=== PATIENT | male | born 1985 | race Caucasian/White ===

== ENCOUNTER 2021-09-29 22:06 | Emergency (ER) | payer OTHER, SELFPAY ==
[~2021-09-29] VITALS: Ht 177.8 cm; Wt 75.6 kg
[2021-09-29] MEDS ORDERED: ONDANSETRON 4MG/2ML VIAL IV ONE (22:30)
[2021-09-29] MEDS: NS 1,000 ML IV SCH (22:48)
[2021-09-29 22:54] LABS: BASO # 0.1 10^3/uL (0.0-0.2); BASO % 0.5 % (0.0-1.0); EOS # 0.3 10^3/uL (0.0-0.5); EOS % 2.1 % (0.0-3.0); HEMATOCRIT 43.3 % (42.0-52.0); HEMOGLOBIN 15.1 g/dl (13.5-17.5); LYMPH # 4.1 10^3/uL (1.5-5.0); LYMPH % 27.3 % (24.0-44.0); MEAN CORPUSCULAR HEMOGLOBIN 32.1 pg (27.0-33.0); MEAN CORPUSCULAR HGB CONC 34.9 g/dl (32.0-36.5); MEAN CORPUSCULAR VOLUME 92.1 fl (80.0-96.0); MONO % 6.7 % (2.0-8.0); NEUTROPHILS # 9.4 10^3/uL (1.5-8.5); NEUTROPHILS % 63.1 % (36.0-66.0); PLATELET COUNT, AUTOMATED 314 10^3/uL (150-450); WHITE BLOOD COUNT 14.9 10^3/uL (4.0-10.0)
[2021-09-29 23:22] LABS: ACETAMINOPHEN LEVEL < 2.0 UG/ML (10.0-30.0); ALBUMIN 4.1 GM/DL (3.2-5.2); ALT/SGPT 23 U/L (12-78); BILIRUBIN,DIRECT 0.1 MG/DL (0.0-0.2); BILIRUBIN,TOTAL 0.3 MG/DL (0.2-1.0); BLOOD UREA NITROGEN 14 MG/DL (7-18); CALCIUM LEVEL 9.5 MG/DL (8.5-10.1); CARBON DIOXIDE LEVEL 28 MEQ/L (21-32); CHLORIDE LEVEL 105 MEQ/L (98-107); CREATININE FOR GFR 1.06 MG/DL (0.70-1.30); ETHYL ALCOHOL (ETHANOL) < 0.003 % (0.000-0.010); GLOMERULAR FILTRATION RATE > 60.0 (>60); GLUCOSE, FASTING 148 MG/DL (70-100); POTASSIUM SERUM 3.2 MEQ/L (3.5-5.1); SALICYLATE LEVEL < 1.7 MG/DL (5.0-30.0); SODIUM LEVEL 141 MEQ/L (136-145); TOTAL PROTEIN 7.1 GM/DL (6.4-8.2)
[2021-09-29] MEDS ORDERED: POTASSIUM CHLORIDE 10MEQ SR TABLET PO ONE (23:50)
[2021-09-30 00:52] LABS: AMPHETAMINES LEVEL URINE NEGATIVE (NEGATIVE); BARBITURATES URINE NEGATIVE (NEGATIVE); BENZODIAZEPINES URINE NEGATIVE (NEGATIVE); CANNABINOIDS URINE POSITIVE (NEGATIVE); COCAINE METABOLITE URINE NEGATIVE (NEGATIVE); METHADONE URINE NEGATIVE (NEGATIVE); OPIATES URINE NEGATIVE (NEGATIVE); PHENCYCLIDINE URINE NEGATIVE (NEGATIVE)
[2021-09-30] MEDS: NS 1,000 ML IV SCH (06:25)
[2021-09-30 08:08] VITALS: BP 114/61
== END 2021-09-30 08:10 | disposition home or self-care (01) ==
LOC: M ED 22:06
DX: T40.711A Poisoning by cannabis, accidental (unintentional), initial encounter (principal); F12.10 Cannabis abuse, uncomplicated; R11.10 Vomiting, unspecified; R53.1 Weakness
CPT/HCPCS: 36415; 71045; 80048; 80076; 80143; 80307; 82077; 82550; 84443; 84484; 85025; 93005; 93041; 94760; 96361; 96374; 99285; J2405

== ENCOUNTER → 2022-08-15 | Outpatient (CLI) | payer MEDICAID | LOC: M WUC 12:59 | PROVIDERS: ATTEND Physician Assistant | DX: Z00.00 Encounter for general adult medical examination without abnormal findings (principal); F32.A Depression, unspecified; R53.83 Other fatigue ==

== ENCOUNTER → 2022-08-16 | Outpatient (CLI) | payer MEDICAID ==
[2022-08-16 13:19] LABS: ALBUMIN 4.1 G/DL (3.2-5.2); ALKALINE PHOSPHATASE 61 U/L (46-116); ALT/SGPT 13 U/L (7.0-40); AST/SGOT 15 U/L (<34); BILIRUBIN,TOTAL 0.7 MG/DL (0.3-1.2); BLOOD UREA NITROGEN 17 MG/DL (9-23); CALCIUM LEVEL 9.5 MG/DL (8.5-10.1); CARBON DIOXIDE LEVEL 29 MMOL/L (20-31); CHLORIDE LEVEL 107 MMOL/L (98-107); CHOLESTEROL LEVEL 165 MG/DL (<200); CHOLESTEROL RISK RATIO 3.14 (<5); CREATININE FOR GFR 0.93 MG/DL (0.70-1.30); GLOMERULAR FILTRATION RATE > 60.0 (>60); GLUCOSE, FASTING 91 MG/DL (60-100); HDL CHOLESTEROL 52.4 MG/DL (>40); LDL CHOLESTEROL 98.6 MG/DL (<100); NON-HDL-C 113 MG/DL; POTASSIUM SERUM 4.3 MMOL/L (3.5-5.1); SODIUM LEVEL 139 MMOL/L (136-145); TOTAL PROTEIN 7.1 G/DL (5.7-8.2); TRIGLYCERIDES LEVEL 70 MG/DL (<150); VITAMIN B12 LEVEL 625 PG/ML (211-911)
[2022-08-16 13:20] LABS: FOLATE 17.08 NG/ML (>5.4); THYROID STIMULATING HORMONE 1.032 uIU/ML (0.55-4.78); TOTAL 25(OH) VITAMIN D 22.5 NG/ML (20.0-100.0)
[2022-08-16 13:21] LABS: FREE T4 1.14 NG/DL (0.89-1.76)
[2022-08-16 13:53] LABS: BASO # 0.1 10^3/uL (0.0-0.2); BASO % 0.6 % (0.0-1.0); EOS # 0.2 10^3/uL (0.0-0.5); EOS % 2.8 % (0.0-3.0); HEMATOCRIT 45.3 % (42.0-52.0); HEMOGLOBIN 15.3 g/dl (13.5-17.5); LYMPH # 2.1 10^3/uL (1.5-5.0); LYMPH % 26.8 % (24.0-44.0); MEAN CORPUSCULAR HEMOGLOBIN 32.6 pg (27.0-33.0); MEAN CORPUSCULAR HGB CONC 33.8 g/dl (32.0-36.5); MEAN CORPUSCULAR VOLUME 96.6 fl (80.0-96.0); MONO # 0.6 10^3/uL (0.0-0.8); NEUTROPHILS % 62.5 % (36.0-66.0); PLATELET COUNT, AUTOMATED 272 10^3/uL (150-450); RED BLOOD COUNT 4.69 10^6/uL (4.30-6.10)
== END ==
LOC: M WUC 09:57
PROVIDERS: ATTEND Physician Assistant
DX: Z00.00 Encounter for general adult medical examination without abnormal findings (principal); F32.A Depression, unspecified; R53.83 Other fatigue

== ENCOUNTER 2023-05-15 19:20 | Emergency (ER) | payer OTHER, MEDICAID ==
[~2023-05-15] VITALS: Ht 172.7 cm; Wt 77.1 kg
[2023-05-15 21:59] LABS: HEMATOCRIT 40.7 % (42.0-52.0); HEMOGLOBIN 14.6 g/dl (13.5-17.5); MEAN CORPUSCULAR HEMOGLOBIN 32.7 pg (27.0-33.0); MEAN CORPUSCULAR HGB CONC 35.9 g/dl (32.0-36.5); MEAN CORPUSCULAR VOLUME 91.3 fl (80.0-96.0); PLATELET COUNT, AUTOMATED 305 10^3/uL (150-450); RED BLOOD COUNT 4.46 10^6/uL (4.30-6.10); WHITE BLOOD COUNT 9.8 10^3/uL (4.0-10.0)
[2023-05-15 22:26] LABS: AMPHETAMINES LEVEL URINE NEGATIVE (NEGATIVE); BARBITURATES URINE NEGATIVE (NEGATIVE); BENZODIAZEPINES URINE NEGATIVE (NEGATIVE); COCAINE METABOLITE URINE NEGATIVE (NEGATIVE); METHADONE URINE NEGATIVE (NEGATIVE); OPIATES URINE NEGATIVE (NEGATIVE); PHENCYCLIDINE URINE NEGATIVE (NEGATIVE)
[2023-05-15 22:27] LABS: CANNABINOIDS URINE NEGATIVE (NEGATIVE)
[2023-05-15 22:29] LABS: ETHYL ALCOHOL (ETHANOL) < 0.003 % (0.000-0.010)
[2023-05-15 22:31] LABS: ALBUMIN 4.1 G/DL (3.2-5.2); ALKALINE PHOSPHATASE 95 U/L (46-116); ALT/SGPT 25 U/L (7.0-40); AST/SGOT 19 U/L (<34); BILIRUBIN,DIRECT 0.1 MG/DL (<0.4); BILIRUBIN,TOTAL 0.3 MG/DL (0.3-1.2); BLOOD UREA NITROGEN 16 MG/DL (9-23); CALCIUM LEVEL 9.7 MG/DL (8.5-10.1); CARBON DIOXIDE LEVEL 24 MMOL/L (20-31); CHLORIDE LEVEL 109 MMOL/L (98-107); CREATININE FOR GFR 1.03 MG/DL (0.70-1.30); GLOMERULAR FILTRATION RATE > 60.0 (>60); GLUCOSE, FASTING 130 MG/DL (60-100); POTASSIUM SERUM 4.4 MMOL/L (3.5-5.1); SALICYLATE LEVEL < 3.0 MG/DL (<30); SODIUM LEVEL 141 MMOL/L (136-145); TOTAL PROTEIN 7.4 G/DL (5.7-8.2)
[2023-05-15 22:34] LABS: THYROID STIMULATING HORMONE 0.652 uIU/ML (0.55-4.78)
[2023-05-15 23:00] VITALS: BP 146/62; TEMP 97.6; O2SAT 99
[2023-05-15] MEDS ORDERED: VITMTA PO (23:00)
[2023-05-15] MEDS ORDERED: DOXY100T27 PO (23:00)
[2023-05-15] MEDS ORDERED: CLON0.5T2 PO (23:00)
[2023-05-15] MEDS ORDERED: ALBU8.5H INH (23:00)
[2023-05-15] MEDS ORDERED: HOME MED LIST COMPLETE! XX SCH (23:00)
[2023-05-15] MEDS ORDERED: FLUV100T25 PO (23:00)
[2023-05-15] MEDS ORDERED: ALLE180T33 PO (23:00)
[2023-05-15] MEDS ORDERED: PRED10TA2 PO (23:00)
== END 2023-05-15 23:48 | disposition home or self-care (01) ==
LOC: EDBD 19:20 → M ED 19:20
DX: F41.0 Panic disorder [episodic paroxysmal anxiety] (principal); R06.4 Hyperventilation; R55 Syncope and collapse; F43.10 Post-traumatic stress disorder, unspecified; F32.A Depression, unspecified; J45.909 Unspecified asthma, uncomplicated; Z79.51 Long term (current) use of inhaled steroids; Z79.899 Other long term (current) drug therapy

== ENCOUNTER 2024-03-18 09:37 | Emergency (ER) | payer OTHER, MEDICAID ==
[~2024-03-18] VITALS: Ht 172.7 cm; Wt 84.8 kg
[~2024-03-18 09:37] MED LIST: ALBU8.5H INH; ALLE180T33 PO; CLON0.5T2 PO; DOXY100T27 PO; FLUV100T25 PO; PRED10TA2 PO; VITMTA PO
[2024-03-18] MEDS: ALBUTEROL SULFATE 2.5MG/0.5ML INH NEB SOLN NEB ONE (10:34)
[2024-03-18] MEDS ORDERED: VENTAER INH (11:31)
[2024-03-18] MEDS ORDERED: PRED20TA PO (11:31)
[2024-03-18 11:43] VITALS: BP 117/78; TEMP 98.4; O2SAT 97
== END 2024-03-18 11:47 | disposition home or self-care (01) ==
LOC: M ED 09:37
DX: J20.9 Acute bronchitis, unspecified (principal); F43.10 Post-traumatic stress disorder, unspecified; F17.210 Nicotine dependence, cigarettes, uncomplicated; Z79.51 Long term (current) use of inhaled steroids; Z79.52 Long term (current) use of systemic steroids

== ENCOUNTER → 2024-07-24 | Outpatient (REF) ==
[~2024-07-24] MED LIST changes: +PRED20TA PO; +VENTAER INH
== END ==
LOC: M PLAIMG 08:51
PROVIDERS: ATTEND Internal Medicine
DX: M79.641 Pain in right hand (principal); R07.9 Chest pain, unspecified

== ENCOUNTER → 2025-02-08 | Outpatient (REF) | payer MEDICAID, OTHER ==
[~2025-02-08] MED LIST changes: +FLUV100T20 PO; -FLUV100T25 PO
[2025-02-08 15:11] LABS: BASO # 0.0 10^3/uL (0.0-0.2); BASO % 0.5 % (0.0-1.0); EOS # 0.3 10^3/uL (0.0-0.5); EOS % 3.6 % (0.0-3.0); LYMPH # 2.5 10^3/uL (1.5-5.0); LYMPH % 29.5 % (24.0-44.0); MONO # 0.6 10^3/uL (0.0-0.8); MONO % 7.4 % (2.0-8.0); NEUTROPHILS # 5.0 10^3/uL (1.5-8.5); NEUTROPHILS % 58.8 % (36.0-66.0); PLATELET COUNT, AUTOMATED 310 10^3/uL (150-450)
[2025-02-08 15:20] LABS: ESTIMATED AVERAGE GLUCOSE 91.0 MG/DL (60-110)
[2025-02-08 15:30] LABS: ALT/SGPT 19.0 U/L (7.0-40); AST/SGOT 18.0 U/L (<34); CALCIUM LEVEL 9.3 MG/DL (8.5-10.1); CARBON DIOXIDE LEVEL 28.0 MMOL/L (20-31); CHLORIDE LEVEL 105.0 MMOL/L (98-107); CHOLESTEROL LEVEL 179.0 MG/DL (<200); CHOLESTEROL RISK RATIO 4.61 (<5); CREATININE FOR GFR 1.14 MG/DL (0.70-1.30); GLOMERULAR FILTRATION RATE 84.4 (>60); LDL CHOLESTEROL 116.8 MG/DL (<100); NON-HDL-C 140.2 MG/DL; POTASSIUM SERUM 4.6 MMOL/L (3.5-5.1); SODIUM LEVEL 144.0 MMOL/L (136-145); TRIGLYCERIDES LEVEL 117.0 MG/DL (<150)
== END ==
LOC: M LABWUC 13:55
DX: F41.1 Generalized anxiety disorder (principal); J45.909 Unspecified asthma, uncomplicated; Z76.89 Persons encountering health services in other specified circumstances